=== PATIENT | male | born 1945 | race Two or more races ===

== ENCOUNTER → 2022-05-03 | Outpatient (CLI) | payer MEDICARE, BC, OTHER ==
[~2022-05-03] MED LIST: CLOP75TA2 PO; ECOT81TA5 PO; METO1TAB7 PO; NOXI1TAB PO; RELU120T PO; ROSU40TA4 PO; VITA-243 PO
== END ==
LOC: M ONCR 09:25
PROVIDERS: ATTEND General Practice
DX: C61 Malignant neoplasm of prostate (principal); I51.9 Heart disease, unspecified; Z79.02 Long term (current) use of antithrombotics/antiplatelets

== ENCOUNTER → 2022-05-27 | Outpatient (CLI) | payer MEDICARE, BC, OTHER ==
[~2022-05-27] VITALS: Ht 180.3 cm; Wt 78.2 kg
[~2022-05-27] MED LIST changes: +CIPR-249 PO; +LIDOCAINE 1% MDV 20ML VIAL SC ONE; +LIDOCAINE VISCOUS 2% SOLN 15ML UDC TOP ONE; +LORA1TAB4 PO
[2022-05-27 14:42] VITALS: BP 135/70
[2022-05-27 15:32] VITALS: BP 141/74
== END ==
LOC: M ONCR 13:02
PROVIDERS: ATTEND General Practice
DX: C61 Malignant neoplasm of prostate (principal)
CPT/HCPCS: 55874; 55876; A4648; C1889